=== PATIENT | female | born 1985 | race Asian ===

== ENCOUNTER 2022-09-14 10:37 | Inpatient (IN) ==
[2022-09-14] MEDS ORDERED: OXYTOCIN 30 UNITS/500 ML BAG IV PRN ×2 (10:55→10:56)
[2022-09-14] MEDS ORDERED: LIDOCAINE 1% LOCAL 20 ML VIAL INFIL PRN (10:55)
--- NOTE | 2022-09-14 11:06 | History & Physical Report ---
Date of Service September 14, 2022 Assessment & Plan (1) Spontaneous rupture of amniotic membranes: Plan: 36 y/o female at 38w6d here for IOL after confirmed SROM. GBS neg, Rh pos. Rubella equivocal - will need MMR vaccine post . Anticipate vaginal delivery. Pitocin as indicated. Epidural when/if desired. c/b need for MMR vaccine c/b velamentous insertion of umbilical cord (2) Velamentous insertion of umbilical cord: (3) Need for MMR vaccine: Admission and Anticipated Discharge Date Admission Date: September 14, 2022 History of Present Illness Chief Complaint: SROM Primary Care Provider: Liana Dong, DO 36 y/o female here for IOL after confirmed SROM. GBS neg, Rh pos. Rubella equivocal. +FM. +LOF slightly pink tinged. No vaginal bleeding. No contractions. 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 Hx: No STDs last pap 07/01/20 NIL Allergies Allergy/AdvReac Type Severity Reaction Status Date / Time No Known Allergies Allergy Verified 09/14/22 10:07 Home Medications Medication Instructions Recorded Confirmed Type prenat.vits,rasta,[id number] 1 tab PO DAILY 12/28/20 09/14/22 History loratadine [Claritin] 10 mg PO DAILY PRN Allergy Symptoms 02/11/22 09/14/22 History aspirin 81 mg chewable tablet 81 mg PO DAILY 09/14/22 09/14/22 History docusate sodium 100 mg capsule 100 mg PO BID 09/14/22 09/14/22 History (Colace) Patient History Medical History (Updated 09/14/22 @ 11:04 by Jessica Novoa MD) History of chicken pox No pertinent past medical history Surgical History (Updated 02/17/22 @ 12:46 by Carmelita Jhaveri MD, FACOG) H/O dilation and curettage D&E for MAB H/O sinus surgery History of placement of ear tubes S/P tonsillectomy S/P wisdom tooth extraction Family History Mother Lupus Hypertension Grandfather (Paternal) Prostate cancer Grandmother (Paternal) Colorectal cancer Uncle Colorectal cancer Lung cancer Brain cancer Grandmother (Maternal) Diabetes Other Cancer Lymphoma Social History (Updated 02/11/22 @ 14:09 by Debra Sosa) Smoking Status: Never smoker Second Hand Exposure: No; Hx Alcohol Use: No Hx Substance Use: No Preferred Language: Zimbabwean Communication Ability: Effective Visual Impairment: No Limitations Commercial Representative Required: No Beliefs That Will Affect Care: None marital status: marital status details: Ahsan Wilhelm(47) [phone] Current Living Situation: Spouse Current Living Situation Comment: lives with spouse, 2 cats, spouse to change litter. 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 @ [employer] Other Information That Helps Us Care for You: No Feels Safe at Home: Yes Safety Concerns: Feels Safe At This Time Assistive Devices: None Physical Exam Physical Exam: Gen: well appearing gravid female in NAD HEENT: AT NC Resp: No increased work of breathing CV: clinically well perfused : gravid abdomen cervical exam in clinic: 2-80/-2 Psych: appropriate mood and affect Neuro: alert and oriented FHT: CAT I - baseline 150s, moderate variability, no decels Results & Data ([facility]) Vital Signs (Past 12 Hours) Vital Signs Temp Pulse Resp BP 09/14/22 10:39 16 09/14/22 10:39 36.8 C 70 16 116/71 Supervising Physician Co-Signing Physician Notes Patient seen and evaluated and agree with the above findings and plan Resident Activity Tracking Resident Involvement: Resident Care Provided Care Provided: OB Delivery
[2022-09-14 11:58] LABS: Hematocrit (blood only) 40.7 % (37.0-47.0); Hemoglobin 13.2 g/dl (12.0-16.0); Mean Corpuscular Hemoglobin 28.3 pg (25.0-34.0); Mean Corpuscular Hgb Conc 32.4 g/dL (32.0-36.0); Mean Corpuscular Volume 87.3 fL (80.0-100.0); Platelet Count 324 K/uL (130-400); RDW Standard Deviation 40.7 fL (36.4-46.3); Red Blood Count 4.66 M/uL (4.20-5.40); White Blood Count 9.48 K/ul (4.8-10.8)
[2022-09-14] MEDS: LACTATED RINGER'S 1,000 ML IV PRN ×3 (13:05→20:01)
[2022-09-14] MEDS ORDERED: ePHEDrine sulfate 50 MG/ML AMP ONE (18:43)
[2022-09-14] MEDS ORDERED: LIDOCAINE 2%/EPINEPHRINE 1:200,000 20 ML SDV ONE (18:43)
[2022-09-14] MEDS ORDERED: BUPIVACAINE 0.25% 30 ML VIAL ONE (18:43)
[2022-09-14] MEDS ORDERED: fentaNYL citrate 100 MCG/2 ML VIAL ONE (18:43)
[2022-09-14] MEDS ORDERED: SODIUM CHLORIDE 0.9% INJ 10 ML VIAL ONE (18:43)
[2022-09-14] MEDS ORDERED: fentaNYL 2MCG/ML ROPIVACAINE 1.25MG/ML 100 ML BAG EPI ONE (18:44)
--- NOTE | 2022-09-14 19:49 | Anesthesiology Consultation ---
Date of Service September 14, 2022 Assessment & Plan Chart Review Chart Review: Acceptable Risk for Labor Epidural Consults Requested none History Height/Weight Height: 5 ft 2 in Weight: 66.678 kg Allergies Allergy/AdvReac Type Severity Reaction Status Date / Time No Known Allergies Allergy Verified 09/14/22 10:07 Medications Home Medications Medication Instructions Recorded Confirmed Last Taken prenat.vits,rasta,[id number] 1 tab PO DAILY 12/28/20 09/14/22 09/14/22 06:30 loratadine [Claritin] 10 mg PO DAILY PRN Allergy Symptoms 02/11/22 09/14/22 Unknown aspirin 81 mg chewable tablet 81 mg PO DAILY 09/14/22 09/14/22 09/13/22 23:30 docusate sodium 100 mg capsule 100 mg PO BID 09/14/22 09/14/22 09/14/22 06:30 (Colace) Active Medications Generic Name Dose Route Start Last Admin Trade Name Freq PRN Reason Stop Dose Admin Lactated Ringer's 1,000 mls @ 125 mls/hr 09/14/22 10:55 09/14/22 19:05 Lr IV 09/16/22 10:54 999 mls/hr .Q8H PRN Administration L&D Protocol Protocol Oxytocin 30 units in 500 mls @ 16 mls/hr 09/14/22 10:56 09/14/22 18:00 Pitocin IV 09/16/22 10:55 0.96 units/hr .Q24H PRN 16 mls/hr Labor Induction/Augmentation Titration Protocol 0.96 UNITS/HR Past Medical History Medical History (Updated 09/14/22 @ 11:04 by Jessica Novoa MD) History of chicken pox No pertinent past medical history Past Family History Family History Mother Lupus Hypertension Grandfather (Paternal) Prostate cancer Grandmother (Paternal) Colorectal cancer Uncle Colorectal cancer Lung cancer Brain cancer Grandmother (Maternal) Diabetes Other Cancer Lymphoma Past Surgical History Surgical History (Updated 02/17/22 @ 12:46 by Carmelita Jhaveri MD, FACOG) H/O dilation and curettage D&E for MAB H/O sinus surgery History of placement of ear tubes S/P tonsillectomy S/P wisdom tooth extraction Social History Smoking Status: Never smoker Hx Alcohol Use: No alcohol intake frequency: holidays/special occasions only Hx Substance Use: No substance use type: does not use Physical Exam Vital Signs Last Vital Signs Temp 36.4 C L 09/14/22 17:03 Pulse 69 09/14/22 19:46 Resp 20 09/14/22 17:03 BP 109/65 09/14/22 19:46 Pulse Ox 98 09/14/22 19:44 Testing Laboratory Results 09/14/22 11:34
[2022-09-14] MEDS ORDERED: ePHEDrine sulfate 50 MG/ML AMP IV PRN (19:51)
[2022-09-14] MEDS ORDERED: NALOXONE HCL 1 MG in SODIUM CHLORIDE 0.9% 1000ML 1,000 ML IV PRN (19:51)
[2022-09-14] MEDS ORDERED: diphenhydrAMINE 50 MG/ML VIAL IV PRN (19:51)
[2022-09-14] MEDS ORDERED: fentaNYL 2MCG/ML ROPIVACAINE 1.25MG/ML 100 ML BAG EPI PRN (19:51)
[2022-09-14] MEDS ORDERED: ONDANSETRON INJ 2 MG/ML 2 ML VIAL IV PRN (19:51)
[2022-09-14] MEDS ORDERED: NALOXONE HCL 0.4 MG/1 ML VIAL/CARP IV PRN (19:51)
[2022-09-14] MEDS ORDERED: NALBUPHINE HCL INJ 10 MG/ML AMP IV PRN (19:51)
--- NOTE | 2022-09-14 20:37 | Labor Progress Brief Note ---
Date of Service September 14, 2022 Subjective Reason For Note: Routine Evaluation Assessment & Plan (1) Spontaneous rupture of amniotic membranes: Plan: Progressing well. Cat 1 tracing. (2) Supervision of normal intrauterine in primigravida: (3) Supervision of elderly primigravida: Admission and Anticipated Discharge Date Admission Date: September 14, 2022 Physical Exam Genitourinary: Manual OB Exam: + cervical dilation (6.5), + cervical effacement 90%, + station 0 and + amniotic fluid clear OB Exam Monitor Tracing: + external FHT monitor used, + external uterine monitor used, + category I and + normal FHT variability; no early decelerations present, no late decelerations present and no variable decelerations Results & Data ([facility]) Vital Signs (Past 12 Hours) Vital Signs Temp Pulse Resp BP Pulse Ox 09/14/22 19:45 36.4 C L 18 09/14/22 20:29 71 124/61 99 09/14/22 20:24 66 97 09/14/22 20:19 70 99 09/14/22 20:15 69 106/61 93 09/14/22 20:14 70 96 09/14/22 20:09 75 98 09/14/22 20:06 70 94 09/14/22 20:04 68 96 09/14/22 19:59 69 99 09/14/22 19:58 68 103/62 09/14/22 19:56 68 104/63 09/14/22 19:54 98 09/14/22 19:54 72 09/14/22 19:54 71 107/61 09/14/22 19:52 71 105/60 09/14/22 19:50 74 109/64 09/14/22 19:49 74 97 09/14/22 19:48 73 110/65 09/14/22 19:46 69 109/65 09/14/22 19:44 71 106/65 98 09/14/22 19:42 73 112/65 09/14/22 19:40 71 108/64 09/14/22 19:39 72 100 09/14/22 19:38 70 107/64 09/14/22 19:36 68 103/64 09/14/22 19:34 64 100 09/14/22 19:29 71 100 09/14/22 19:24 75 96 09/14/22 19:19 74 100 09/14/22 19:14 75 98 09/14/22 19:09 100 09/14/22 19:09 80 09/14/22 19:09 77 93 09/14/22 19:04 79 99 09/14/22 17:58 55 L 108/60 09/14/22 17:03 36.4 C L 66 20 115/66 09/14/22 16:05 64 113/66 09/14/22 15:03 68 20 110/64 09/14/22 14:03 67 99/55 L 09/14/22 12:58 36.5 C 62 20 112/70 09/14/22 10:39 16 09/14/22 10:39 36.8 C 70 16 116/71 Coding Level of Care Code None Diagnoses Spontaneous rupture of amniotic membranes Supervision of normal intrauterine in primigravida Z34.00 Supervision of elderly primigravida O09.519
[2022-09-15] MEDS ORDERED: CALCIUM CARBONATE 500 MG CHEWABLE TAB PO PRN (02:46)
[2022-09-15] MEDS: LACTATED RINGER'S 1,000 ML IV PRN (02:51)
[2022-09-15] MEDS ORDERED: miSOPROStoL 200 MCG TAB PR ONE (07:45)
[2022-09-15] MEDS ORDERED: miSOPROStoL 200 MCG TAB ONE (07:46)
[2022-09-15 08:18] LABS: Hematocrit (blood only) 30.6 % (37.0-47.0); Mean Corpuscular Hemoglobin 28.1 pg (25.0-34.0); Mean Corpuscular Hgb Conc 32.7 g/dL (32.0-36.0); Mean Platelet Volume 9.2 fL (9.4-12.4); Platelet Count 256 K/uL (130-400); RDW Standard Deviation 40.2 fL (36.4-46.3); Red Blood Count 3.56 M/uL (4.20-5.40)
[2022-09-15] MEDS ORDERED: OXYTOCIN 20 UNITS in LACTATED RINGER'S 1,000 ML IV SCH (08:50)
[2022-09-15] MEDS ORDERED: MEASLES, MUMPS & RUBELLA VIRUS VIAL SQ ONE (08:50)
[2022-09-15] MEDS ORDERED: oxyCODONE/ACETAMINOPHEN 5mg/325mg TAB PO PRN (08:50)
[2022-09-15] MEDS ORDERED: HYDROCORTISONE ACETATE 25 MG SUPP PR PRN (08:50)
[2022-09-15] MEDS ORDERED: BENZOCAINE 20% AER SPR 82.5 GM CAN EXT PRN (08:50)
[2022-09-15] MEDS ORDERED: DIPHTHERIA/TETANUS/PERTUSSIS 0.5mL SYR/VIAL (Age 7+yrs) IM ONE (08:50)
[2022-09-15] MEDS ORDERED: bisacodyL 10 MG SUPP PR PRN (08:50)
[2022-09-15] MEDS ORDERED: OXYTOCIN 30 UNITS/500 ML BAG IV PRN (08:50)
[2022-09-15] MEDS ORDERED: ACETAMINOPHEN 325 MG TAB PO PRN (08:50)
[2022-09-15] MEDS ORDERED: LORATADINE 10 MG TAB PO PRN (09:04)
--- NOTE | 2022-09-15 09:15 | Anesthesia Procedure Note ---
Date of Service September 15, 2022 Anesthesia Post Epidural Note Vital Signs Vital Signs: Temp Pulse Resp BP Pulse Ox 98.4 F 83 16 99/60 L 96 09/15/22 08:00 09/15/22 09:03 09/15/22 08:45 09/15/22 09:03 09/15/22 07:18 Pain Intensity Right Lower Abdomen: Pain Intensity: 0 Notes Mental Status: alert / awake / arousable and participated in evaluation Nausea / Vomiting: adequately controlled Pain: adequately controlled Airway Patency, RR, SpO2: stable & adequate BP & HR: stable & adequate Hydration State: stable & adequate Neuraxial Anesthesia: was administered and sensory block is resolving Anesthetic Complications: no major complications apparent and Pt Satisfied with anesthetic care Epidural: Removed without complications and With tip intact
[2022-09-15] MEDS: IBUPROFEN 600 MG TAB PO PRN ×3 (09:29→21:44)
[2022-09-15] MEDS: ceFAZolin 2000MG 2,000 MG/15 ML SYR IV SCH ×2 (09:29→16:43)
--- NOTE | 2022-09-15 09:33 | Delivery Summary ---
DATE OF SERVICE: 09/15/2022 PROCEDURE: Normal spontaneous vaginal delivery, second-degree perineal laceration repair and manual extraction of placenta. SURGEON: Saturnino De La Rosa MD. PREOPERATIVE DIAGNOSES: 1. Single intrauterine at 39 weeks 0 days gestational age. 2. Spontaneous rupture of membranes. 3. Advanced maternal age. 4. Velamentous cord insertion. POSTOPERATIVE DIAGNOSES: 1. Single intrauterine at 39 weeks 0 days gestational age. 2. Spontaneous rupture of membranes. 3. Advanced maternal age. 4. Velamentous cord insertion. 5. Status post procedure. ESTIMATED BLOOD LOSS: 500 mL DRAINS: Straight cath at the completion of the case. URINE OUTPUT: 100 mL per straight cath. COMPLICATIONS: Cord avulsion and manual extraction of placenta. INDICATIONS: The patient is a 36-year-old G3, P0 admitted at 38 weeks 6 days gestational age with spontaneous rupture of membranes. She was started on oxytocin per regular protocol and progressed well in labor. She received an epidural for anesthesia. PROCEDURE IN DETAIL: The patient progressed to 10 cm dilated, 100% effaced, positive 2 station, pushed over intact perineum with epidural anesthesia and delivered a viable female with weight and Apgars pending. Head of the delivered in BELINDA position, restituted to left transverse. A single nuchal was noted, which was easily reduced. Body and shoulders quickly followed. was noted to be vigorous upon delivery and a 2-minute delayed cord clamping was initiated. Cord was then double clamped and cut. was taken out of the way to the nursery staff for evaluation, but was still noted to be vigorous. The cord blood was obtained. Attention was then turned to delivery of the placenta with gentle cord traction. The umbilical cord did avulse. There was attempt to try to remove this with ring forceps without success. Due to the patient's heavy bleeding the placenta had to be removed manually as other measures were not successful in delivering the placenta. The placenta was evaluated and did appear to be intact upon evaluation after manual extraction. There was noted to be second-degree perineal laceration which was noted prior to the manual extraction. The laceration repaired with 3-0 Vicryl with a traditional crown stitch. Needle, sponge, and instrument counts were correct at the completion of the case. The patient did receive 800 mcg of Cytotec secondary to prolonged pushing and a suspected large for gestational age . We also prescribed a 24-hour course of Ancef due to manual extraction. Both mother and stable in the immediate post-delivery period. Job ID: [id number]
[2022-09-15] MEDS: DOCUSATE SODIUM 100 MG CAP PO SCH (21:44)
[2022-09-16] MEDS: ceFAZolin 2000MG 2,000 MG/15 ML SYR IV SCH (00:38)
--- NOTE | 2022-09-16 05:08 | Obstetrical Progress Note ---
Date of Service September 16, 2022 Assessment & Plan (1) care and examination: Plan stable, routine pp care. rh pos/ri/. Day #:: 1 Subjective Ambulation: ambulating normally Voiding: no voiding problems Diet Tolerance:: regular diet Lochia:: Small Feeding Type:: breast feeding no pain issues Constitutional: + as per Subjective / HPI Physical Exam Constitutional WD/WN, vitals as above Respiratory normal respiratory effort, lungs clear to auscultation Cardiovascular Rate/Rhythm: regular rate and regular rhythm Gastrointestinal (Abdomen) Inspection/Auscultation: abdomen normal to inspection Percussion/Palpation: abdomen soft Fundus firm 2cm down Musculoskeletal nt calves no edema Neurologic grossly normal Psychiatric A+Ox3, euthymic affect Results & Data ([facility]) Vital Signs (Past 12 Hours) Vital Signs Temp Pulse Resp BP Pulse Ox O2 Del Method 09/16/22 04:15 97.9 F 61 20 95/60 L 100 Room Air 09/15/22 23:00 97.7 F 71 20 93/58 L Room Air 09/15/22 19:30 99.7 F H 64 20 89/55 L 98 Room Air
[2022-09-16 07:38] LABS: Hematocrit (blood only) 21.7 % (37.0-47.0); Hemoglobin 7.2 g/dl (12.0-16.0); Mean Corpuscular Hemoglobin 28.5 pg (25.0-34.0); Mean Corpuscular Hgb Conc 33.2 g/dL (32.0-36.0); Mean Corpuscular Volume 85.8 fL (80.0-100.0); Mean Platelet Volume 9.5 fL (9.4-12.4); Platelet Count 216 K/uL (130-400); RDW Coefficient of Variation 12.9 % (11.5-14.5); RDW Standard Deviation 39.4 fL (36.4-46.3); Red Blood Count 2.53 M/uL (4.20-5.40); White Blood Count 18.38 K/ul (4.8-10.8)
[2022-09-16] MEDS: IBUPROFEN 600 MG TAB PO PRN ×2 (08:38→19:47)
[2022-09-16] MEDS: DOCUSATE SODIUM 100 MG CAP PO SCH ×2 (08:38→19:48)
[2022-09-16] MEDS: PRENATAL VITAMIN 1 TAB PO SCH (08:38)
[2022-09-17 06:37] LABS: Hematocrit (blood only) 21.7 % (37.0-47.0); Hemoglobin 7.1 g/dl (12.0-16.0)
--- NOTE | 2022-09-17 07:35 | Obstetrical Progress Note ---
Date of Service September 17, 2022 Assessment & Plan (1) care and examination: PPD#2 doing well. Hgb stable. Vitals wnl. Feeling well. . DC home today, instructions reviewed. Followup 6w PP. Subjective Ambulation: ambulating normally Voiding: no voiding problems Diet Tolerance:: regular diet Lochia:: Moderate Review of Systems All systems reviewed & are unremarkable except as noted in HPI & below Physical Exam Constitutional WD/WN, vitals as above no acute distress Respiratory normal respiratory effort Cardiovascular Rate/Rhythm: regular rate and regular rhythm Gastrointestinal (Abdomen) Inspection/Auscultation: abdomen normal to inspection; abdomen not distended Percussion/Palpation: abdomen soft Genitourinary OB Exam Abdomen: + fundal height Fundus: + firm; not tender Results & Data ([facility]) Vital Signs (Past 12 Hours) Vital Signs Temp Pulse Resp BP Pulse Ox O2 Del Method 09/16/22 23:28 36.7 C 63 18 100/61 98 Room Air
[2022-09-17] MEDS: PRENATAL VITAMIN 1 TAB PO SCH (08:18)
[2022-09-17] MEDS: DOCUSATE SODIUM 100 MG CAP PO SCH (08:18)
[2022-09-17] MEDS: IBUPROFEN 600 MG TAB PO PRN (08:18)
== END 2022-09-17 15:10 | disposition home or self-care (01) | DRG 807 ==
LOC: 4S1 10:37 → 4E2 09-15 11:00

== ENCOUNTER 2025-06-07 20:21 | Inpatient (IN) ==
[2025-06-07] MEDS ORDERED: LIDOCAINE 1% LOCAL 20 ML VIAL INFIL PRN (21:07)
[2025-06-07] MEDS ORDERED: OXYTOCIN 30 UNITS/NSS 30 UNITS/500 ML BAG IV PRN (21:07)
[2025-06-07] MEDS: LACTATED RINGER'S 1,000 ML IV PRN (21:25)
[2025-06-07] MEDS ORDERED: NALBUPHINE HCL INJ 10 MG/ML AMP IV PRN (21:33)
[2025-06-07] MEDS ORDERED: ROPIVACAINE 0.5% PF 5 MG/ML 20 ML VIAL EPI PRN (21:33)
[2025-06-07] MEDS ORDERED: BUPIVACAINE 0.25% PF 30 ML VIAL EPI PRN (21:33)
[2025-06-07] MEDS ORDERED: NALOXONE HCL 0.4 MG/1 ML VIAL/CARP IV PRN (21:33)
[2025-06-07] MEDS ORDERED: LIDOCAINE 2% MPF LOCAL 5 ML VIAL EPI PRN (21:33)
[2025-06-07] MEDS ORDERED: diphenhydrAMINE 50 MG/ML VIAL IV PRN (21:33)
[2025-06-07] MEDS ORDERED: NALOXONE HCL 1 MG in SODIUM CHLORIDE 0.9% 1,000 ML IV PRN (21:33)
[2025-06-07] MEDS ORDERED: SODIUM CHLORIDE 0.9% PF INJ 10 ML VIAL EPI PRN (21:33)
--- NOTE | 2025-06-07 21:33 | Anesthesiology Consultation ---
Date of Service June 07, 2025 Assessment & Plan Chart Review Chart Review: Patient NOT seen in Pre Admission Testing and Acceptable Risk for Labor Epidural Consults Requested none ASA ASA2 Proposed Anesthesia Anesthesia Type: Labor Epidural Risk / Benefits Reviewed With: PT / POA / Parent / Guardian, Accepts Plan and Informed Consent Obtained History Height/Weight Height: 5 ft 2 in Weight: 70.67 kg Allergies Allergy/AdvReac Type Severity Reaction Status Date / Time No Known Allergies Allergy Verified 06/02/25 09:10 Medications Home Medications Medication Instructions Recorded Confirmed Last Taken prenat.vits,rasta,[id number]-[id number]-[id number] 1 tab PO DAILY 12/28/20 06/07/25 06/07/25 08:00 aspirin 81 mg tablet,delayed 81 mg PO DAILY 10/22/24 06/07/25 06/07/25 08:00 release (Adult Low Dose Aspirin) famotidine 20 mg tablet (Pepcid) 20 mg PO HS 05/22/25 06/07/25 06/06/25 21:00 Colace PO 1XD 06/07/25 06/07/25 08:00 Active Medications Generic Name Dose Route Start Last Admin Trade Name Freq PRN Reason Stop Dose Admin Lactated Ringer's 1,000 mls @ 125 mls/hr 06/07/25 21:07 06/07/25 21:25 Lr IV 06/09/25 21:06 999 mls/hr .Q8H PRN Administration L&D Protocol Protocol NPO Date Last Intake of Fluids: 06/07/25 Time Last Intake of Fluids: 21:00 Date Last Intake of Solids: 06/07/25 Time Last Intake of Solids: 15:00 Past Medical History Medical History Spontaneous in first trimester Velamentous insertion of umbilical cord Prior miscarriage with , antepartum History of chicken pox No pertinent past medical history Exercise / Class Metabolic Activity 1 > 8 Run/Swim/Ski/Tennis Past Family History Family History Mother Hypertension Blood clotting disorder Grandfather (Paternal) Prostate cancer Grandmother (Paternal) Colorectal cancer Uncle Colorectal cancer Lung cancer Brain cancer Grandmother (Maternal) Diabetes Other Cancer Lymphoma Past Surgical History Surgical History H/O dilation and curettage D&E for MAB H/O sinus surgery History of placement of ear tubes S/P wisdom tooth extraction S/P tonsillectomy Past Anesthesia History No Hx of Anesthesia Complications and No Family Hx of Anesthesia Complications Social History Smoking Status: Current some day smoker Do You Dip or Chew Tobacco: No Hx Alcohol Use: No alcohol intake frequency: holidays/special occasions only Hx Substance Use: No substance use type: does not use Review of Systems ROS Unobtainable: All systems reviewed & are unremarkable except as noted in HPI & below Physical Exam Vital Signs Last Vital Signs Pulse 58 L 06/07/25 21:28 Resp 18 06/07/25 20:35 BP 102/50 L 06/07/25 20:42 Pulse Ox 96 06/07/25 21:28 ENMT Mouth: no TMJ abnormality Thyromental Distance: > or= 3.5 Finger Breadths Mallampati Class: II Neck normal visual inspection and trachea midline; neck extension not limited Respiratory normal respiratory effort Auscultation: lungs clear to auscultation bilaterally Cardiovascular Rate/Rhythm: regular rate and regular rhythm Heart Sounds: no murmur Musculoskeletal Spine: normal cervical ROM Extremities: full ROM of extremities Neurologic moves all extremities Psychiatric Orientation: alert and oriented x 3
[2025-06-07] MEDS: fentANYL 2 MCG/ML BUPIVacaine 0.125%-NSS 100ML BAG EPI PRN (21:53)
[2025-06-07] MEDS: BUPIVACAINE 0.25% PF 30 ML VIAL EPI STA (21:55)
[2025-06-07] MEDS: LIDOCAINE 2%/EPINEPHRINE 1:200,000 20 ML PF EPI STA (21:55)
[2025-06-07] MEDS: fentANYL 2 MCG/ML BUPIVacaine 0.125%-NSS 100ML BAG ONE (21:56)
[2025-06-07] MEDS: BUPIVACAINE 0.25% PF 30 ML VIAL ONE (21:56)
[2025-06-07] MEDS: SODIUM CHLORIDE 0.9% PF INJ 10 ML VIAL ONE (21:56)
[2025-06-07] MEDS: LIDOCAINE 2%/EPINEPHRINE 1:200,000 20 ML PF ONE (21:56)
[2025-06-07] MEDS: SODIUM CHLORIDE 0.9% PF INJ 10 ML VIAL EPI STA (21:57)
[2025-06-07 22:16] LABS: Hematocrit (blood only) 40.0 % (37.0-47.0); Hemoglobin 13.3 g/dL (12.0-16.0); Mean Corpuscular Hemoglobin 29.3 pg (25.0-34.0); Mean Corpuscular Volume 88.1 fL (80.0-100.0); Platelet Count 229 K/uL (130-400); RDW Standard Deviation 40.5 fL (36.4-46.3); Red Blood Count 4.54 M/uL (4.20-5.40); White Blood Count 13.56 K/ul (4.8-10.8)
[2025-06-08] MEDS: OXYTOCIN 30 UNITS/NSS 30 UNITS/500 ML BAG IV PRN (02:05)
--- NOTE | 2025-06-08 02:15 | Delivery Summary ---
Vaginal Delivery Summary Date of Service June 08, 2025 Vaginal Delivery Summary DIAGNOSES: 1. Bates intrauterine at 39w5d gestation. 2. Spontaneous onset of labor. 3. Group B Streptococcus Neg. PROCEDURE: Spontaneous vaginal delivery and repair of second degree laceration. SURGEON: Meredith Ochoa MD. COREMAKER PIPE: None. QUANTITATIVE BLOOD LOSS: 316 mL. COMPLICATIONS: None. PLACENTA: Spontaneous and intact with a 3-vessel cord. DISPOSITION: Stable to labor and delivery. DESCRIPTION: The patient pushed well and brought the head to in OA position. The infant's head was allowed to deliver with contraction force and no further active pushing, with the perineum protected during this time. There was no nuchal cord. The left shoulder was anterior. The shoulders and body delivered without any difficulty, and the was placed on the maternal abdomen. It was vigorous and moving all extremities, and making respiratory efforts. The cord was doubly clamped by the MD and then cut by the FOB. The placenta delivered spontaneously and was noted to be intact and with a 3VC. The cervix, vagina and perineum were examined and were found to have a shallow second degree laceration which was repaired in the usual manner with vicryl, including a crown stitch to rebuild the perineal body. The fundus was firm and lochia minimal immediately after delivery. [facility] Vaginal Delivery Charge Vaginal Delivery Codes: 16037 global code for the antepartum, delivery, and post-
[2025-06-08] MEDS ORDERED: BENZOCAINE 20% SPRY 85 APPLN/85 GM CAN EXT PRN (02:19)
[2025-06-08] MEDS ORDERED: HYDROCORTISONE ACETATE 25 MG SUPP PR PRN (02:19)
[2025-06-08] MEDS: IBUPROFEN 600 MG TAB PO PRN (03:51)
[2025-06-08] MEDS: ACETAMINOPHEN 325 MG TAB PO PRN (03:52)
--- NOTE | 2025-06-08 07:52 | Anesthesia Procedure Note ---
Date of Service June 08, 2025 Anesthesia Post Epidural Note Vital Signs Vital Signs: Temp Pulse Resp BP Pulse Ox O2 Del Method 36.7 C 67 18 97/60 L 96 Room Air 06/08/25 04:30 06/08/25 04:30 06/08/25 05:01 06/08/25 04:30 06/08/25 04:30 06/08/25 04:30 Pain Intensity Perineal: Pain Intensity: 1 Notes Mental Status: alert / awake / arousable Nausea / Vomiting: adequately controlled Pain: adequately controlled Airway Patency, RR, SpO2: stable & adequate BP & HR: stable & adequate Hydration State: stable & adequate Neuraxial Anesthesia: was administered and sensory block is resolving Anesthetic Complications: no major complications apparent and Pt Satisfied with anesthetic care Epidural: Removed without complications and With tip intact
[2025-06-08] MEDS: PRENATAL VITAMIN 1 TAB PO SCH (09:11)
[2025-06-08] MEDS: DOCUSATE SODIUM 100 MG CAP PO SCH (09:11)
[2025-06-08 23:03] VITALS: RESP 16; O2SAT 97
--- NOTE | 2025-06-09 05:58 | Obstetrical Progress Note ---
Date of Service June 09, 2025 Assessment & Plan (1) examination following vaginal delivery: Plan 39 y/o ppd #1 s/p Feels well today. Vital signs stable Continue post- care Encourage ambulation and Pain controlled with ibuprofen Hgb stable anticipate home discharge today, follow up with Dr. Ochoa in 6 weeks. Admission and Anticipated Discharge Date Admission Date: June 07, 2025 Subjective 39 y/o ppd #1 s/p Ambulation: ambulating normally Voiding: no voiding problems Passing Gas:: Yes Diet Tolerance:: regular diet Lochia:: Small Feeding Type:: breast feeding Current Pain Level: minimal Resting comfortably this AM in NAD. Denies RASMUSSEN, CP, SOB, N/V/D, LE pain/swelling. Review of Systems Review of Systems: as above Physical Exam Physical Exam: General: patient resting comfortably, NAD, non-toxic in appearance, A&Ox4, answers questions appropriately. Skin: warm, dry, intact HEENT: NC/AT, anicteric sclera, conjunctiva without injection, moist mucus membranes. Heart: +S1/S2, regular, no m/r/g Lungs: equal air entry bilaterally, no rales/rhonchi/wheezes Abd: +BS, soft, NT/ND, uterine fundus firm at umbilicus Ext: warm, no clubbing/cyanosis or edema, [place]'s neg. Neuro: no focal neurological deficits Results & Data Vital Signs (Past 12 Hours) Vital Signs Temp Pulse Resp BP Pulse Ox O2 Del Method 06/08/25 23:02 36.7 C 65 16 102/62 97 Room Air 06/08/25 19:20 Room Air 06/08/25 19:20 36.8 C 67 18 93/56 L 98 Room Air
[2025-06-09 07:18] LABS: Hematocrit (blood only) 31.3 % (37.0-47.0); Hemoglobin 10.4 g/dL (12.0-16.0); Mean Corpuscular Hemoglobin 29.7 pg (25.0-34.0); Mean Corpuscular Volume 89.4 fL (80.0-100.0); Platelet Count 214 K/uL (130-400); RDW Standard Deviation 41.4 fL (36.4-46.3); Red Blood Count 3.50 M/uL (4.20-5.40); White Blood Count 11.67 K/ul (4.8-10.8)
[2025-06-09] MEDS: DIPHTHER/TETAN/PERTUS Vaccine (Tdap, Adol/Adult) 0.5mL IM ONE (08:29)
[2025-06-09 08:34] VITALS: BP 92/57; TEMP 97.7
[2025-06-09 13:08] VITALS: PULSE 61
== END 2025-06-09 14:35 | disposition home or self-care (01) | DRG 807 ==
LOC: OPB 20:21 → 4S1 20:26 → 4E2 06-08 04:56